=== PATIENT | male | born 1950 | race Caucasian/White ===

== ENCOUNTER → 2016-10-23 | Outpatient (CLI) | payer MEDICARE ==
[~2016-10-23] MED LIST: ASPIRIN (CHILDR81 MG PO; COLACE100 MG PO; DILAUDID 2MG(HYD2 MG PO; FLOMAX0.4 MG PO; LEVEMIR FL100 UNIT/1 SUB-Q; LOVENOX 4040 MG/0.4 SUB-Q; MIRALAX17 GM PO; NEURONTIN300 MG PO; NOVOLOG FL100 UNIT/1 SUB-Q; TYLENOL EXTRA500 MG PO; ULTRAM50 MG PO; ZESTRIL30 MG PO; ZOCOR20 MG PO
== END | disposition disaster alternative care site (69) ==
LOC: GRAD 14:55
DX: M25.551 Pain in right hip (principal)

== ENCOUNTER 2016-11-14 13:00 | Inpatient (IN) | payer MEDICARE ==
[~2016-11-14] VITALS: Ht 182.9 cm; Wt 103.5 kg
--- NOTE | ~2016-11-14 | DS ---
PATIENT'S NAME: CHESTER NUNES [facility] AGE: 66 Y [address] ROOM: [address] [address] LOCATION: G3N ADMIT DATE: 12/06/2016 Discharge Summary DISCHARGE DATE: 12/08/2016 FAMILY PHYSICIAN: Myles Iqbal MD ATTENDING PHYSICIAN: Jorge Griffin ADMITTING DIAGNOSIS: Degenerative joint disease of right hip. COMORBIDITIES: BPH, chronic kidney disease, stage 3, type 2 diabetes, hypertension, diabetic peripheral neuropathy, and hyperlipidemia. PROCEDURE: Right total hip arthroplasty. HOSPITAL COURSE: After the patient was cleared in the outpatient setting, was taken to the operating room, where the aforementioned right total hip arthroplasty was performed. We used the FamilySkyline robotic assistance for cup positioning, he had a Trident PSL, shell size 56, 36, X3, 0 degree liner, 132 degree, size 6 stem, with a +5, 36 mm head. Postoperatively, the patient was weightbearing as tolerated. Given his elevated creatinine, Lovenox was used for 14 days for DVT prophylaxis. Dilaudid 0.2 mg IV push q.10 p.r.n. breakthrough pain in addition to the standard pain medicine regimen. NSAIDs were to be held throughout the entire hospitalization due to elevated creatinine. All other preadmission medications were resumed in the postoperative period. Postop visit, the patient was awake, alert, oriented x3, had adequate analgesia, neurovascular was intact to the operative foot. Postop day 1, dressing clean, dry, and intact to the operative right hip and neurovascular intact to the operative right leg. Pain was reasonably well- controlled. PT was begun. Encourage incentive spirometer. He continued Lovenox for DVT prophylaxis. Postop hemoglobin was 10.3. DISCHARGE INSTRUCTIONS: Follow hip dislocation precautions, Mepilex dressing on until followup appointment. Follow up with myself 6-12 days and 2000 calorie diet. Postoperative, his routine meds were resumed. Additional discharge medications were no additional prescriptions were written. ZHEN MICHAELS FOR MD SUSANA ARGUELLO/hebert /[id number] d: 12/14/16 0427 t: 12/20/16 0931, DISCHARGE SUMMARY
--- NOTE | ~2016-11-14 | OR ---
PATIENT'S NAME: CHESTER NUNES [facility] AGE: 66 Y [address] ROOM: [address] [address] LOCATION: [facility] ADMIT DATE: 12/06/2016 OR/Procedure Report DISCHARGE DATE: FAMILY PHYSICIAN: Myles Iqbal MD ATTENDING PHYSICIAN: Jorge Griffin SURGEON: Jorge Griffin MD DIRECTOR OF MEDICAL STAFF SERVICES: ZHEN Porter DATE OF PROCEDURE: 12/06/2016 PREOPERATIVE DIAGNOSIS: Osteoarthritis, right hip. POSTOPERATIVE DIAGNOSIS: Osteoarthritis, right hip. PROCEDURE PERFORMED: Noncemented right total hip replacement using Eliot robot assist and size 6 standard-offset stem with +5 x 36 mm head and 56 mm PSL cup with an X3 36 mm non-hooded liner. ANESTHESIA: Subarachnoid block. INDICATIONS: This is a 66-year-old diabetic male with chronic kidney disease and degenerative joint disease of his right hip, no longer responding to nonoperative management. DESCRIPTION OF PROCEDURE: The patient was brought to the operating room, and when satisfactory spinal anesthesia had been established, he was placed on his left side with his right side up. His right lower extremity, hip, and hemipelvis were prepped and draped in an aseptic manner. The Eliot array guide pins were placed into the iliac crest. Three Schanz pins were drilled, and the array hooked up. A posterior hip incision was then made centered over the greater trochanter and carried down through the subcutaneous fat. The fascia shalonda and fascia of the gluteus justin were divided in line with the skin incision. The short external rotators were put on stretch and cut close to the greater trochanter. The checkpoint pin was placed in the greater trochanter, and the posterior capsule opened in an upside-down hockey stick- shaped incision. The hip was dislocated and the neck cut about a fingerbreadth proximal to the lesser trochanter. The neck was lateralized with a box cut chisel and the canal found. The canal was broached up to a #6 broach which appeared to fit nicely and tightly in the canal. The acetabulum was then exposed, and the acetabular checkpoint placed. Soft tissues were debrided, and the acetabulum registered several times with multiple trials as the acetabular notch anatomy was distorted from large osteophytes, particularly inferiorly. Finally, a satisfactory registration was obtained. The cup size had been determined on the CT scan as 56, so a 56 mm reamer was brought in on the Eliot robot, the acetabular angle was set at 45, and anteversion was at 25 degrees. The cup was then reamed. Offset and reaming PATIENT'S NAME: CHESTER NUNES [facility] AGE: 66 Y [address] ROOM: [address] [address] LOCATION: [facility] ADMIT DATE: 12/06/2016 OR/Procedure Report DISCHARGE DATE: FAMILY PHYSICIAN: Myles Iqbal MD ATTENDING PHYSICIAN: Jorge Griffin bed appeared to be adequate. A trial 56 was placed, and it fit nicely. The 56 mm no-holed PSL cup was then placed in the robot, and abduction and anteversion fixed, and the cup impacted home. Trial reductions were then performed with high-offset and standard-offset necks and +2.5 and +5 x 36 mm heads. With the standard-offset neck, the leg length was 2 mm shorter than the opposite side, and offset was 2 mm less than that on the opposite side. Offset was 4 mm less than preoperatively, and length was about 6 mm longer. This was accepted as the hip was stable at 90 degrees of flexion with about 60 degrees of internal rotation. The trials were then removed. The manhole cover was screwed into the cup, and the X3 x 36 mm poly impacted home. The broach was removed, and the #6 standard-offset stem impacted home. The +5 metal head was impacted onto the trunnion and the hip reduced. Posterior capsule was repaired with interrupted #2 Orthocord. The wound was irrigated copiously with saline, and the piriformis was sutured to the gluteus medius with modified Martinez stitch and #2 Orthocord. The remainder of the closure was by ZHEN Robins, who closed the fascia shalonda with a running #1 Vicryl, the fascia of the gluteus medius with running #1 Vicryl, subcutaneous fat with a running 2-0 Vicryl, and the skin with skin samantha. Dressings were applied, and the patient was transferred to the recovery area, having tolerated the procedure well. MD Yimi ARGUELLO /[id number] d: 12/06/16 1610 t: 12/13/16 1128, OPERATIVE SUMMARY
[2016-11-16] MEDS ORDERED: ULTRAM50 MG PO (10:21)
[2016-11-16] MEDS ORDERED: NEURONTIN300 MG PO (10:22)
[2016-11-16] MEDS ORDERED: ASPIRIN (CHILDR81 MG PO (10:22)
[2016-11-16] MEDS ORDERED: FLOMAX0.4 MG PO (10:23)
[2016-11-16] MEDS ORDERED: ZOCOR20 MG PO (10:23)
[2016-11-16] MEDS ORDERED: ZESTRIL30 MG PO (10:24)
[2016-11-16] MEDS ORDERED: LEVEMIR FL100 UNIT/1 SUB-Q (10:25)
[2016-11-16] MEDS ORDERED: NOVOLOG FL100 UNIT/1 SUB-Q ×2 (10:25→10:26)
--- NOTE | 2016-12-06 15:05 | NUR ---
Introduced self/role to patient, his and daughter. They live in [place]. Plan is home. Listed off the DME they already have, do not feel like they will need any others. Denied any discharge needs or barriers. Added my name to his marker board, will continue to follow.
--- NOTE | 2016-12-06 16:25 | NUR ---
Introduced self/role to patient and . They attended the Preop Joint Class. Report they live in [place]. Has a cane. Has a combination tub/shower. Reviewed and encouraged use of IS. Encouraged waving feet. Has foot pumps on bilat. Will follow and assist as needs identified.
--- NOTE | 2016-12-06 17:19 | NUR ---
Significant Event: up to floor from PACU at 1145. dressing to r) hip c/d/i. csm assessments wnl. rates r) hip pain 7-5 on pain scale, received dilaudid 1 tab x2 last at 1643, routine ultram and iv dilaudid at 1316. IS encouraged up to 1500. up to chair and stood at beside with 2 assist, tolerated well. bilateral foot pumps on and ice bag to r) hip. Follow up:
--- NOTE | 2016-12-07 04:41 | NUR ---
Patient alert and oriented x3, very pleasant and cooperative, dressing is clean dry and intact to right hip, pain has been rated at a 4 all this shift has not requested any narcotic pain medication, has some burning in feet from neuropathy, has an inlarged prostate voids frequent small amounts refuses bladder scan and any type of catheter patient states this is per his norm, has rested in the chair tonight, able to stand with one assist walker and gaitbelt and take a few steps.
[2016-12-07 05:44] LABS: HEMATOCRIT 31.6 % (37.0-53.0); HEMOGLOBIN 10.3 g/dL (11.0-16.0)
--- NOTE | 2016-12-07 13:24 | NUR ---
[facility] note: 1300 Visited with patient and spouse. Provided Diabetes Management booklet and Diabetes Survival Skills Checklist. Patient has been through Diabetes Self management classes here in the past and states he is getting along OK with his diabetes at home. No Current A1C on chart but spouse reports that last A1C in October 2016 was 7.8%. CDE reviewed need for proper control of blood sugars to reduce risks of infection and promote proper wound healing. Will check in with patient/spouse later this afternoon to assess further educational needs related to Diabetes care.
--- NOTE | 2016-12-07 17:36 | NUR ---
Significant Event: Ambulates with SBA and walker. Dressing C/D/I. Ice at all times. Voids frequent small amounts, states he has prostate problems and this is normal. Dilaudid 2mg and Tylenol 1000mg at 1720. With therapy this am was lightheaded and diaphoretic with ambulation, denies this afternoon. Accucheck ACHS, refused supper insulin. Plans to dismiss to home tomorrow. Follow up:
--- NOTE | 2016-12-08 07:29 | NUR ---
Significant Event: Alert and oriented X3. VSS. Dressing to R) hip is CDI. CSM WNL. Ambulates with 1 person assist, gait belt and walker, stiff. Lungs clear and diminished. Pt has occasional productive cough, states he has had since prior to surgery. Encouraged IS use. Passing flatus. Voids small amounts at a time. IV's SL'd. Dilaudid for pain last at 0610. Valium 2.5 given X1. Accucheck at HS was 181. at bedside, helpful with cares. Follow up: Plans to discharge home today
[2016-12-08] MEDS ORDERED: COLACE100 MG PO (11:10)
[2016-12-08] MEDS ORDERED: TYLENOL EXTRA500 MG PO (11:10)
[2016-12-08] MEDS ORDERED: LOVENOX 4040 MG/0.4 SUB-Q (11:11)
[2016-12-08] MEDS ORDERED: MIRALAX17 GM PO (11:12)
[2016-12-08] MEDS ORDERED: DILAUDID 2MG(HYD2 MG PO (11:13)
--- NOTE | 2016-12-08 11:14 | NUR ---
[facility] note: 0994 Spouse reports that she completed the Diabetes Survival Skills checklist and gave it the nurse to place on patient's chart. Deny needing any further education at the time. Discussed importance of proper blood sugar control to promote wound healing and reduce risks of infection post surgery. Recommended to increase frequency of testing blood sugars upon dismissall for a least 3-4 weeks, to make sure blood sugars do stay in good control. Both patient and spouse agree to call if questions of concerns regarding diabetes management.
--- NOTE | 2016-12-08 14:47 | NUR ---
Pt alert and oriented. He is going home today with assistance of . He is up and about with walker and standby assist. He understands hip dislocation precations. Drsg changed today by Jerod FONTAINE. Pt keeps ice to hip and times and rates pain at 3 with use of dilaudid and tylenol. Blood sugars today 139 and 116. He has some nausea this mid morning after breakfast and vomitted x2, 200 ml and 100 ml. At noon it had subsided. Pt had shower, dressed and worked with PT. States he feels much better nos. Good po fluid intake and voids. Pt started on mucinex by Dr Iqbal today for nagging productive cough that he states had prior to OR. Pt will do own lovenox injections at home for a few weeks. Pt CSM WNL except for his diabetic neuropathy. Pt normally voids every few hrs. Enc to continue use of IS at home as well as all other exercises. Pt discharged in stable condition with spouse. States has all belongings.
== END 2016-12-08 14:47 | disposition disaster alternative care site (69) | DRG 470 ==
LOC: G3N 12-06 05:33
PROVIDERS: Physician Assistant Surgical; ADMIT Orthopaedic Surgery
PROC: 0SR902A Replacement of Right Hip Joint with Metal on Polyethylene Synthetic Substitute, Uncemented, Open Approach (ICD-10-PCS; principal; 2016-12-06)
PROC: 8E0Y0CZ Robotic Assisted Procedure of Lower Extremity, Open Approach (ICD-10-PCS; principal; 2016-12-06)
DX: M16.11 Unilateral primary osteoarthritis, right hip (principal); E11.42 Type 2 diabetes mellitus with diabetic polyneuropathy; N18.3 Chronic kidney disease, stage 3 (moderate); I12.9 Hypertensive chronic kidney disease with stage 1 through stage 4 chronic kidney disease, or unspecified chronic kidney disease; Z79.4 Long term (current) use of insulin; N40.0 Benign prostatic hyperplasia without lower urinary tract symptoms; E78.00 Pure hypercholesterolemia, unspecified; H91.90 Unspecified hearing loss, unspecified ear; Z79.82 Long term (current) use of aspirin; R05 Cough
CPT/HCPCS: C1713; C1776; J0171; J0690; J0735; J1170; J1650; J2270; J2405; J2795; J3010; J7030; J7040; J7120

== ENCOUNTER → 2016-11-16 | Outpatient (CLI) | payer MEDICARE | END | disposition disaster alternative care site (69) | LOC: GNJRC 09:42 | DX: Z01.812 Encounter for preprocedural laboratory examination (principal) ==